=== PATIENT | male | born 1955 | race Caucasian/White ===

== ENCOUNTER 2017-02-09 08:29 | Day surgery (SDC) | payer OTHER ==
[2017-02-09] MEDS ORDERED: Lactated Ringers 1,000 ML IV SCH (08:30)
[2017-02-09] MEDS ORDERED: Midazolam 1 MG/ML 2 ML SDV IV ONE (11:00)
[2017-02-09] MEDS ORDERED: Lidocaine 2% 100 MG/5 ML Syringe IVPUSH ONE (11:00)
[2017-02-09] MEDS ORDERED: Propofol 200 MG/20 ML SDV IV ONE (11:00)
--- NOTE | 2017-02-09 11:41 | PCM.OPNOTE ---
- General Post-Op/Procedure Note Date of Surgery/Procedure: 02/09/17 Operative Procedure(s): egd with bx. c scope with bx Findings: gastroduodenitis esophagitis transverse and desc. colon polyp sigmoid diverticulosis Pre Op Diagnosis: hx of dysplastic colon polyp. hx of gerd Post-Op Diagnosis: gastroduodenitis. esophagitis. transverse and desc. colon polyp. sigmoid diverticulosis Anesthesia Technique: MAC Primary Surgeon: Joseph Arreola Anesthesia Provider: Giuseppe Canchola Pathology: stomach, duodenum, distal esophagus transverse and descending colon polyp Complications: None Condition: Good Free Text/Narrative:: see dictation
--- NOTE | 2017-02-09 12:45 | OR ---
DATE OF OPERATION: 02/09/2017 SURGEON: Joseph Arreola MD PROCEDURE PERFORMED: EGD with cold forceps biopsy and colonoscopy with cold forceps biopsy. PREOPERATIVE DIAGNOSIS: Longstanding history of gastroesophageal reflux disease and history of dysplastic polyps. POSTOPERATIVE DIAGNOSIS: Gastroduodenitis, esophagitis, as well as polyp of the descending colon and the transverse colon. INDICATIONS FOR PROCEDURE: This is a 61-year-old white male, who has a history of dysplastic colon polyps in the past. He presents for followup scope, and on talking to the patient during our preop evaluation, he notes a longstanding history of reflux disease, has not really had an EGD in the past, so he was offered and accepted that as well. DESCRIPTION OF OPERATION: After an excellent IV sedation was administered, the bite block was inserted. The flexible endoscope was passed without difficulty down the patient's esophagus, into the stomach. The stomach was insufflated. The scope was passed through the pylorus to the second portion of the duodenum and then slowly withdrawn. The following findings were noted. First portion of the duodenum demonstrates evidence of inflammation. Multiple biopsies and photo were taken. Stomach, diffuse gastritis, especially in the area of the antrum with hemorrhage, biopsies were taken of this area as well. GE junction measured approximately 40 cm. The Z-line was irregular, somewhat inflamed, biopsies were taken. The stomach was deflated, and the scope was removed. Our attention was then turned to the colon. Digital rectal exam was performed. No marked abnormality was noted. Flexible colonoscope was inserted to the cecum without difficulty. The following findings were noted. Ascending colon, unremarkable. Transverse colon, distal transverse colon, small polypoid lesion, biopsied with a single bite with a 5 mm biopsy forceps. Descending colon, unremarkable, except for a small polypoid lesion, biopsied with cold biopsy forceps. Sigmoid with sigmoid diverticulosis. Rectum and anus unremarkable. Colon was deflated, scope was removed. The patient tolerated the procedure well and was taken to recovery room in good condition. /[id number] /MODL
[2017-02-09 12:52] VITALS: BP 132/82
== END 2017-02-09 12:25 | disposition home or self-care (01) ==
LOC: FB.SDS 08:29
PROVIDERS: ATTEND Surgery
DX: Z12.11 Encounter for screening for malignant neoplasm of colon (principal); K63.5 Polyp of colon; K29.50 Unspecified chronic gastritis without bleeding; K20.9 Esophagitis, unspecified; D12.4 Benign neoplasm of descending colon; I10 Essential (primary) hypertension; Z88.1 Allergy status to other antibiotic agents; Z79.82 Long term (current) use of aspirin; Z79.899 Other long term (current) drug therapy; N40.0 Benign prostatic hyperplasia without lower urinary tract symptoms; Z98.890 Other specified postprocedural states; Z87.891 Personal history of nicotine dependence
CPT/HCPCS: 43239; 45380; 88305; 88342; J2250; J2704; J7120